=== PATIENT | male | born 1990 | race Caucasian/White ===

== ENCOUNTER 2017-10-08 14:31 | Observation (INO) ==
[2017-10-08] MEDS ORDERED: Sod Chloride 0.9% Inj 1,000 ML IV.SIG ONE ×2 (14:44)
--- NOTE | 2017-10-08 14:50 | ED ---
HPI General Chief Complaint: Recheck/Abnormal Lab/Rx Stated Complaint: nausea/vomitting/Evac Time Seen by Provider: 10/08/17 14:44 Source: patient and EMS Mode of arrival: EMS History of Present Illness HPI narrative: There is a 27-year-old man who presents to the nausea vomiting ongoing since this morning. States symptoms been persistent and severe. He is not had previous similar symptoms. One loose stool but no real diarrhea. Some slight abdominal discomfort earlier, now mostly resolved. Denies any alcohol or drug use. History of peptic ulcer disease when he was 19. On EMS arrival said he was pale cool diaphoretic, vomiting. Blood glucose was found to be elevated at 252. No fevers. No other symptoms. Related Data Home Medications Medication Instructions Recorded Confirmed No Known Home Medications 10/08/17 10/08/17 Allergies Allergy/AdvReac Type Severity Reaction Status Date / Time No Known Allergies Allergy Uncoded 03/14/12 13:34 Review of Systems Except as stated in HPI: all other systems reviewed are negative [facility] Family History Family History Other Diabetes mellitus Social History Social History Substance History: No History of Abuse Second Hand Smoke Exposure: No Smoking Status: Current some day smoker Tobacco Type: Cigars How Often Do You Have a Drink Containing Alcohol: Monthly or less Recent Travel in [facility] within the Last 8 Weeks: No Recent Out of Country Travel within the Last 8 Weeks: No Exam Narrative Exam Narrative: GENERAL: 27-year-old man, little bit unwell appearing, pale and clammy, tremulous and shaking. SKIN: Pale and cool. HEAD: Atraumatic. Normocephalic. EYES: Pupils equal and round. No scleral icterus. No injection or drainage. ENT: No nasal bleeding or discharge. Mucous membranes pink and moist. NECK: Trachea midline. No JVD. CARDIOVASCULAR: Regular rate and rhythm. No murmur appreciated. RESPIRATORY: No accessory muscle use. Clear to auscultation. Breath sounds equal bilaterally. Mild to moderate tachypnea. GASTROINTESTINAL: Abdomen is flat and soft. Minimal tenderness throughout. No rebound or guarding. MUSCULOSKELETAL: No obvious deformities. No edema. NEUROLOGICAL: Awake and alert. No obvious cranial nerve deficits. Motor grossly within normal limits. Normal speech. PSYCHIATRIC: Anxious and tremulous. Course Initial Documented Vital Signs Temperature 98.3 F 10/08/17 14:51 Pulse Rate 70 07/11/18 14:51 Respiratory Rate 16 10/08/17 14:51 Blood Pressure 110/52 L 10/08/17 14:51 Pulse Oximetry 97 10/08/17 14:51 Last Documented Vital Signs Temperature 98.3 F 10/08/17 14:51 Pulse Rate 77 10/08/17 14:57 Respiratory Rate 16 10/08/17 14:51 Blood Pressure 110/52 L 10/08/17 14:51 Pulse Oximetry 97 10/08/17 14:57 Medical Decision Making [facility] Narrative Medical decision making narrative: 27-year-old male presents with nausea vomiting, intractable, with somewhat ill appearance, pale and clammy. Mildly tachypnea, very anxious. Blood sugar is elevated. Seems to be a little bit old for onset type 1 diabetes but certainly possible. Will check labs. We will give IV fluids, Ativan, reassess. Benign abdominal exam at this time. Will reassess. Laboratory studies are occlusive. It shows a anion gap metabolic acidosis, but the pH is really not that abnormal, lactate elevated could suggest dehydration, beta hydroxybutyrate only minimally elevated. Blood sugar is elevated which could suggest diabetes, was likely stress effect from infection. Overall the picture still little bit unclear whether he has diabetes and this could be DKA or if it is dehydration stress from some other etiology. We will give IV fluids , will check repeat lactate, hemoglobin A1c, admission for observation and repeat assessment. Will give small dose of insulin. Lab Data Lab results reviewed: Yes I reviewed the patient's lab results. Result diagrams: 10/08/17 15:07 10/08/17 15:07 Lab Results 10/08/17 10/08/17 10/08/17 Range/Units 14:59 15:07 15:07 WBC (4.0-11.0) th/mm3 RBC (4.50-5.90) mil/mm3 Hgb (13.0-17.0) gm/dL Hct (39.0-51.0) % MCV (80.0-100.0) fL MCH (27.0-34.0) pg MCHC (32.0-36.0) % RDW (11.6-17.2) % Plt Count (150-450) th/mm3 MPV (7.0-11.0) fL Neut % (Auto) (16.0-70.0) % Lymph % (Auto) (9.0-44.0) % [place] % (Auto) (0.0-8.0) % Eos % (Auto) (0.0-4.0) % Baso % (Auto) (0.0-2.0) % Neut # (Auto) (1.8-7.7) th/mm3 Lymph # (Auto) (1.0-4.8) th/mm3 [place] # (Auto) (0.0-0.9) th/mm3 Eos # (Auto) (0.0-0.4) th/mm3 Baso # (Auto) (0.0-0.2) th/mm3 WBC Differential Differential Comment Puncture Site Nurse Patient Temperature 98.6 VBG pH 7.48 H (7.360-7.400) VBG pCO2 28 L (44-48) mmHG VBG pO2 27 L* (35-40) mmHG VBG HCO3 21 L (22-26) mmol/L VBG O2 Saturation 47 L (70-76) % VBG O2 Content 8.7 L (9.0-17.0) Vol % VBG Base Excess -2.3 L (-2-2) mmol/L VBG Carboxyhemoglobin 0.7 (0-4) % VBG Methemoglobin 0.7 (0-2) % Hemoglobin 13.2 (12.0-16.0) G/DL Inspired O2 21 % Critical Value Yes Sodium (136-145) meq/L Potassium (3.5-5.1) meq/L Chloride (98-107) meq/L Carbon Dioxide (21.0-32.0) meq/L Anion Gap (5-15) meq/L BUN (7-18) mg/dL Creatinine (0.60-1.30) mg/dL Estimated GFR (>89) mL/min Random Glucose (74-106) mg/dL Lactic Acid 3.7 H (0.4-2.0) mmol/L Calcium (8.5-10.1) mg/dL Total Bilirubin (0.2-1.0) mg/dL AST (15-37) U/L ALT (12-78) U/L Alkaline Phosphatase (45-117) U/L Total Protein (6.4-8.2) g/dL Albumin (3.4-5.0) g/dL Lipase (73-393) U/L Beta-Hydroxybutyric Acd 1.08 H (0.00-0.39) mmol/L 10/08/17 10/08/17 Range/Units 15:07 15:07 WBC 9.1 (4.0-11.0) th/mm3 RBC 4.78 (4.50-5.90) mil/mm3 Hgb 13.1 (13.0-17.0) gm/dL Hct 38.4 L (39.0-51.0) % MCV 80.3 (80.0-100.0) fL MCH 27.4 (27.0-34.0) pg MCHC 34.1 (32.0-36.0) % RDW 12.5 (11.6-17.2) % Plt Count 247 (150-450) th/mm3 MPV 8.2 (7.0-11.0) fL Neut % (Auto) 88.4 H (16.0-70.0) % Lymph % (Auto) 8.2 L (9.0-44.0) % [place] % (Auto) 3.0 (0.0-8.0) % Eos % (Auto) 0.1 (0.0-4.0) % Baso % (Auto) 0.3 (0.0-2.0) % Neut # (Auto) 8.1 H (1.8-7.7) th/mm3 Lymph # (Auto) 0.7 L (1.0-4.8) th/mm3 [place] # (Auto) 0.3 (0.0-0.9) th/mm3 Eos # (Auto) 0.0 (0.0-0.4) th/mm3 Baso # (Auto) 0.0 (0.0-0.2) th/mm3 WBC Differential . Differential Comment Auto diff final Puncture Site Patient Temperature VBG pH (7.360-7.400) VBG pCO2 (44-48) mmHG VBG pO2 (35-40) mmHG VBG HCO3 (22-26) mmol/L VBG O2 Saturation (70-76) % VBG O2 Content (9.0-17.0) Vol % VBG Base Excess (-2-2) mmol/L VBG Carboxyhemoglobin (0-4) % VBG Methemoglobin (0-2) % Hemoglobin (12.0-16.0) G/DL Inspired O2 % Critical Value Sodium 143 (136-145) meq/L Potassium 3.5 (3.5-5.1) meq/L Chloride 109 H (98-107) meq/L Carbon Dioxide 15.7 L (21.0-32.0) meq/L Anion Gap 18 H (5-15) meq/L BUN 16 (7-18) mg/dL Creatinine 1.31 H (0.60-1.30) mg/dL Estimated GFR 66 L (>89) mL/min Random Glucose 246 H (74-106) mg/dL Lactic Acid (0.4-2.0) mmol/L Calcium 8.4 L (8.5-10.1) mg/dL Total Bilirubin 0.9 (0.2-1.0) mg/dL AST 29 (15-37) U/L ALT 29 (12-78) U/L Alkaline Phosphatase 71 (45-117) U/L Total Protein 6.7 (6.4-8.2) g/dL Albumin 4.1 (3.4-5.0) g/dL Lipase 40 L (73-393) U/L Beta-Hydroxybutyric Acd (0.00-0.39) mmol/L Discharge Plan Discharge Disposition Patient Disposition: 30 Still Patient Physicians Team ED Provider: Mason Miles Primary Care Provider: Primary Care Gillian Browne Attending Provider: Hao Christian Status ED Status: Admitted Observation Patient
[2017-10-08 15:27] LABS: Baso % (Auto) 0.3 % (0.0-2.0); Eos % (Auto) 0.1 % (0.0-4.0); Hematocrit 38.4 % (39.0-51.0); Hemoglobin 13.1 gm/dL (13.0-17.0); Lymph # (Auto) 0.7 th/mm3 (1.0-4.8); Lymph % (Auto) 8.2 % (9.0-44.0); Mean Corpuscular HGB Conc 34.1 % (32.0-36.0); Mean Corpuscular Hemoglobin 27.4 pg (27.0-34.0); Mean Corpuscular Volume 80.3 fL (80.0-100.0); Mean Platelet Volume 8.2 fL (7.0-11.0); Mono # (Auto) 0.3 th/mm3 (0.0-0.9); Neut # (Auto) 8.1 th/mm3 (1.8-7.7); Neut % (Auto) 88.4 % (16.0-70.0); Platelet Count 247 th/mm3 (150-450); Red Blood Count 4.78 mil/mm3 (4.50-5.90); Red Cell Distribution Width 12.5 % (11.6-17.2); White Blood Count 9.1 th/mm3 (4.0-11.0)
[2017-10-08 15:39] LABS: VBG Base Excess -2.3 mmol/L (-2-2); VBG Blood Gas Oxygen Content 8.7 Vol % (9.0-17.0); VBG PCO2 28 mmHG (44-48); VBG PH 7.48 (7.360-7.400); VBG PO2 27 mmHG (35-40)
[2017-10-08 15:50] LABS: Alanine Aminotransferase 29 U/L (12-78); Albumin 4.1 g/dL (3.4-5.0); Anion Gap 18 meq/L (5-15); Aspartate Aminotransferase 29 U/L (15-37); Blood Urea Nitrogen 16 mg/dL (7-18); Calcium 8.4 mg/dL (8.5-10.1); Carbon Dioxide 15.7 meq/L (21.0-32.0); Chloride 109 meq/L (98-107); Glomerular Filtration Rate 66 mL/min (>89); Glucose,Random 246 mg/dL (74-106); Lipase 40 U/L (73-393); Potassium 3.5 meq/L (3.5-5.1); Sodium 143 meq/L (136-145)
[2017-10-08 15:53] LABS: Alkaline Phosphatase 71 U/L (45-117); Total Protein 6.7 g/dL (6.4-8.2)
[2017-10-08] MEDS ORDERED: Bisacodyl 10 MG Supp RECTAL PRN (17:02)
[2017-10-08] MEDS ORDERED: Acetaminophen 325 MG Tablet PO PRN (17:02)
[2017-10-08] MEDS ORDERED: Temazepam 15 MG Capsule PO PRN ×2 (17:02→17:34)
--- NOTE | 2017-10-08 17:02 | P.HPIM ---
History of Present Illness Primary Care Physician: No Primary Care Physician Chief Complaint: Intractable nausea and vomiting History of Present Illness: This is a 27-year-old male with no significant comorbidities other than history of peptic ulcer disease presenting to the hospital for nausea and vomiting. Patient has been in his usual state of health until yesterday, after dinner, he tried to go to sleep but cannot go to bed because of anxiety. This morning around 5 AM, he started having abdominal pain, nausea and started having dry heaves and occasional vomiting. He cannot keep anything down including fluids. There is no note of diarrhea, fever, chills, cough, your urinary symptoms. Patient denies any foot indiscretion. He only had chicken wings for dinner. Inpatient Certification: I certify that the inpatient services were ordered in accordance with Medicare regulations governing the order. This includes certification that hospital inpatient services are reasonable and necessary and in the case of services not specified as inpatient-only under 42 CFR 419.22(n), that they are appropriately provided as inpatient services in accordance to with the 2-midnight benchmark under 43 CFR 412.3(e) Review of Systems All other pertinent systems were reviewed and are negative. PMFSH - History History Provided By: Patient, Family Member - Medical History Medical History: Medical History (Last Reviewed 10/08/17 @ 16:59 by Hao Christian MD) Deafness in left ear Gastric ulcer Peptic ulcer - Family History Family History: Family History (Last Updated 10/08/17 @ 16:40 by Hao Christian MD) Other Diabetes mellitus - Tobacco History Second Hand Smoke Exposure: No Tobacco Use In Past 30 Days: No Smoking Status: Current some day smoker Tobacco Type: Cigars - Alcohol History How Often Do You Have a Drink Containing Alcohol: Monthly or less - Substance Use History Substance History: No History of Abuse - Travel History Recent Travel in the [place] Within the Last 8 Weeks: No Recent Travel Out of the Country Within the Last 8 Weeks: No - Immunization History Tetanus Immunization: Unsure Hx Influenza Vaccine This Season: No Medications and Allergies Active Medications: Active Medications Sodium Chloride (Ns Flush) 2 ml IV.FLUSH PRN PRN PRN Reason: FLUSH AFTER USING IV ACCESS Allergies Allergy/AdvReac Type Severity Reaction Status Date / Time No Known Allergies Allergy Uncoded 03/14/12 13:34 Home Medications Medication Instructions Recorded Confirmed Type No Known Home Medications 10/08/17 10/08/17 History Exam Vital signs: Vital Signs 10/08/17 14:51 10/08/17 14:57 Temperature 98.3 F Pulse Rate 70 77 Respiratory Rate 16 Blood Pressure 110/52 L Pulse Oximetry 97 97 Intake & Output 10/07/17 10/08/17 10/08/17 18:59 06:59 18:59 Weight 58.967 kg Narrative: Not in distress, well-nourished, appears weak. PERRL, pink conjunctiva without injection, anicteric Nose without bleeding, airway patent, oropharynx clear, poor dentition. Dry oral mucosa. Supple neck Normal rate and regular rhythm, no murmurs gallops or rubs appreciated. Clear to auscultation and symmetric bilaterally, normal respiratory effort. Normal bowel sounds, soft, non-tender, nondistended, no guarding. Extremities without clubbing, cyanosis, or edema. No rash of generalized distribution. Skin is warm and dry. AAO x3, no cranial nerve deficits, moves all 4 extremities, no focal neurologic deficits Results - Labs CBC & Chem 7: 10/08/17 15:07 10/08/17 15:07 Labs: Short CBC 10/08/17 Range/Units 15:07 WBC 9.1 (4.0-11.0) th/mm3 Hgb 13.1 (13.0-17.0) gm/dL Hct 38.4 L (39.0-51.0) % Plt Count 247 (150-450) th/mm3 BMP 10/08/17 15:07 Sodium 143 Potassium 3.5 Chloride 109 H Carbon Dioxide 15.7 L BUN 16 Creatinine 1.31 H Calcium 8.4 L Liver Function 10/08/17 Range/Units 15:07 Total Bilirubin 0.9 (0.2-1.0) mg/dL AST 29 (15-37) U/L ALT 29 (12-78) U/L Alkaline Phosphatase 71 (45-117) U/L Albumin 4.1 (3.4-5.0) g/dL Caprini VTE Risk Assessment Caprini VTE Risk Assessment: No/Low Risk (score <= 1) Caprini Risk Assessment Model: Point Value = 1 Point Value = 2 Point Value = 3 Point Value = 5 Age 41-60 Minor surgery BMI > 25 kg/m2 Swollen legs Varicose veins or History of unexplained or recurrent spontaneous Oral contraceptives or hormone replacement Sepsis (< 1 month) Serious lung disease, including pneumonia (< 1 month) Abnormal pulmonary function Acute myocardial infarction Congestive heart failure (< 1 month) History of inflammatory bowel disease Medical patient at bed rest Age 61-74 Arthroscopic surgery Major open surgery (> 45 min) Laparoscopic surgery (> 45 min) Malignancy Confined to bed (> 72 hours) Immobilizing plaster cast Central venous access Age >= 75 History of VTE Family history of VTE Factor V Leiden Prothrombin [id number] Lupus anticoagulant Anticardiolipin antibodies Elevated serum homocysteine Heparin-induced thrombocytopenia Other congenital or acquired thrombophilia Stroke (< 1 month) Elective arthroplasty Hip, pelvis, or leg fracture Acute spinal cord injury (< 1 month) Prophylaxis Regimen: Total Risk Factor Score Risk Level Prophylaxis Regimen 0-1 Low Early ambulation 2 Moderate Order ONE of the following: *Sequential Compression Device (SCD) *Heparin 5000 units SQ BID 3-4 Higher Order ONE of the following medications: *Heparin 5000 units SQ TID *Enoxaparin/Lovenox 40 mg SQ daily (WT < 150 kg, CrCl > 30 mL/min) *Enoxaparin/Lovenox 30 mg SQ daily (WT < 150 kg, CrCl > 10-29 mL/min) *Enoxaparin/Lovenox 30 mg SQ BID (WT < 150 kg, CrCl > 30 mL/min) AND/OR *Sequential Compression Device (SCD) 5 or more Highest Order ONE of the following medications: *Heparin 5000 units SQ TID (Preferred with Epidurals) *Enoxaparin/Lovenox 40 mg SQ daily (WT < 150 kg, CrCl > 30 mL/min) *Enoxaparin/Lovenox 30 mg SQ daily (WT < 150 kg, CrCl > 10-29 mL/min) *Enoxaparin/Lovenox 30 mg SQ BID (WT < 150 kg, CrCl > 30 mL/min) AND *Sequential Compression Device (SCD) Assessment and Plan - Plan This is a 27-year-old male with history of peptic ulcer presenting with intractable nausea and vomiting. Intractable nausea and vomiting-unknown etiology, could be from peptic ulcer disease versus acute gastroenteritis from food poisoning, rule out beginning DKA. Start Protonix, n.p.o. for now, status post 2 L of normal saline, continue IVF. Symptomatic management, antiemetics, morphine for pain. Rule out DKA, hot diabetes mellitus-check hemoglobin A1c, beta hydroxybutyrate acid is positive, lipase is normal, will give insulin based on sliding scale. IVF as above, check urinalysis. Metabolic acidosis-start LR. Recheck BMP and lactic acid. Severe dehydration-IVF as above GI prophylaxis: Protonix, patent previous history of peptic ulcer. DVT prophylaxis: Low risk
[2017-10-08] MEDS ORDERED: Naloxone Inj 0.4 MG/ML Vial IV.PUSH PRN (17:05)
[2017-10-08] MEDS ORDERED: Morphine Inj 4 MG/ML Vial IV.PUSH PRN ×2 (17:05→17:45)
[2017-10-08] MEDS ORDERED: Dextrose 50% in Water 50 ML Vial IV.PUSH PRN (17:06)
[2017-10-08 17:17] LABS: Hemoglobin A1c 5.1 % (4.3-6.0)
[2017-10-08 17:58] LABS: Bilirubin,Urine Negative (Negative); Clarity,Urine Clear (Clear); Color,Urine Yellow (Yellw/Straw); Glucose,Urine (UA) 150 mg/dL (Negative); Leukocyte Esterase,Urine Negative (Negative); Mucus,Urine Few /lpf (Occasional); Nitrite,Urine Negative (Negative); Specific Gravity,Urine 1.024 (1.002-1.035)
[2017-10-08] MEDS ORDERED: Pantoprazole Inj 40 MG Vial IV.PUSH SCH (18:00)
[2017-10-08] MEDS: Insulin NovoLIN Regular Correctional Sugar Inj SQ SCH (19:47)
[2017-10-09] MEDS: Insulin NovoLIN Regular Correctional Sugar Inj SQ SCH ×3 (01:27→13:59)
[2017-10-09 08:07] LABS: Alanine Aminotransferase 24 U/L (12-78); Albumin 3.5 g/dL (3.4-5.0); Alkaline Phosphatase 64 U/L (45-117); Anion Gap 9 meq/L (5-15); Aspartate Aminotransferase 27 U/L (15-37); Blood Urea Nitrogen 8 mg/dL (7-18); Calcium 8.1 mg/dL (8.5-10.1); Carbon Dioxide 22.8 meq/L (21.0-32.0); Chloride 112 meq/L (98-107); Glomerular Filtration Rate Greater Than 89 mL/min (>89); Glucose,Random 75 mg/dL (74-106); Potassium 3.3 meq/L (3.5-5.1); Sodium 144 meq/L (136-145)
--- NOTE | 2017-10-09 12:04 | P.PNIM ---
Subjective Interval history: Patient reports he is feeling much better today. No nausea or vomiting. Physical Exam Vital signs: Vital Signs 10/08/17 14:51 10/08/17 14:57 10/08/17 17:43 Temperature 98.3 F Pulse Rate 70 77 73 Respiratory Rate 16 18 Blood Pressure 110/52 L 99/54 L Pulse Oximetry 97 97 97 10/08/17 20:00 10/08/17 23:59 10/09/17 03:17 Temperature 98.5 F 98.7 F 98.5 F Pulse Rate 86 81 86 Respiratory Rate 16 16 16 Blood Pressure 98/51 L 111/56 L 107/58 L Pulse Oximetry 98 97 98 10/09/17 08:00 10/09/17 09:00 Temperature 98.0 F Pulse Rate 62 68 Respiratory Rate 18 Blood Pressure 108/62 Pulse Oximetry 98 Intake & Output 10/08/17 10/09/17 10/09/17 18:59 06:59 18:59 Intake Total 1999 / 1999 1000 / 1000 1000 / 1000 Balance 1999 / 1999 1000 / 1000 1000 / 1000 Weight 58.967 kg 58.967 kg Intake: IV 1999 / 1999 1000 / 1000 1000 / 1000 LR 1000 mL Inj 1,000 ML @ 125 1000 / 1000 1000 / 1000 mls/hr IV.CONT .Q8H VARSHA Rx#: [id number] NS Inj 1,000 ML @ Wide Open IV. 1999 / 1999 SIG BOLUS ONE Rx#:[id number] Other: Weight On Admission 58.967 kg Narrative: GENERAL: This is a well-nourished, well-developed patient, in no apparent distress. CARDIOVASCULAR: Normal rate and regular rhythm without murmurs, gallops, or rubs. RESPIRATORY: Good respiratory efforts. Breath sounds equal and clear to auscultation bilaterally. GASTROINTESTINAL: Abdomen soft, non-tender, non-distended. Normal active bowel sounds MUSCULOSKELETAL: Extremities without cyanosis, or edema. NEURO: Alert & Oriented x4 to person, place, time, situation. Moves all ext x4 PSYCH: Appropriate mood and affect. Results - Labs CBC & Chem 7: 10/08/17 15:07 10/09/17 06:15 Laboratory Results - last 24 hr 10/08/17 10/08/17 10/08/17 14:59 15:07 15:07 WBC RBC Hgb Hct MCV MCH MCHC RDW Plt Count MPV Neut % (Auto) Lymph % (Auto) [place] % (Auto) Eos % (Auto) Baso % (Auto) Neut # (Auto) Lymph # (Auto) [place] # (Auto) Eos # (Auto) Baso # (Auto) WBC Differential Differential Comment Puncture Site Nurse Patient Temperature 98.6 VBG pH 7.48 H VBG pCO2 28 L VBG pO2 27 L* VBG HCO3 21 L VBG O2 Saturation 47 L VBG O2 Content 8.7 L VBG Base Excess -2.3 L VBG Carboxyhemoglobin 0.7 VBG Methemoglobin 0.7 Hemoglobin 13.2 Inspired O2 21 Critical Value Yes Sodium Potassium Chloride Carbon Dioxide Anion Gap BUN Creatinine Estimated GFR POC Glucose Random Glucose Hemoglobin A1c Lactic Acid 3.7 H Calcium Total Bilirubin AST ALT Alkaline Phosphatase Total Protein Albumin Lipase Beta-Hydroxybutyric Acd 1.08 H Urine Color Urine Clarity Urine pH Ur Specific Fluker Urine Protein Urine Glucose (UA) Urine Ketones Urine Occult Blood Urine Nitrate Urine Bilirubin Urine Urobilinogen Ur Leukocyte Esterase Urine RBC Urine WBC Urine Mucus Micro UA Comment Urine Culture Comments 10/08/17 10/08/17 10/08/17 15:07 15:07 15:07 WBC 9.1 RBC 4.78 Hgb 13.1 Hct 38.4 L MCV 80.3 MCH 27.4 MCHC 34.1 RDW 12.5 Plt Count 247 MPV 8.2 Neut % (Auto) 88.4 H Lymph % (Auto) 8.2 L [place] % (Auto) 3.0 Eos % (Auto) 0.1 Baso % (Auto) 0.3 Neut # (Auto) 8.1 H Lymph # (Auto) 0.7 L [place] # (Auto) 0.3 Eos # (Auto) 0.0 Baso # (Auto) 0.0 WBC Differential . Differential Comment Auto diff final Puncture Site Patient Temperature VBG pH VBG pCO2 VBG pO2 VBG HCO3 VBG O2 Saturation VBG O2 Content VBG Base Excess VBG Carboxyhemoglobin VBG Methemoglobin Hemoglobin Inspired O2 Critical Value Sodium 143 Potassium 3.5 Chloride 109 H Carbon Dioxide 15.7 L Anion Gap 18 H BUN 16 Creatinine 1.31 H Estimated GFR 66 L POC Glucose Random Glucose 246 H Hemoglobin A1c 5.1 Lactic Acid Calcium 8.4 L Total Bilirubin 0.9 AST 29 ALT 29 Alkaline Phosphatase 71 Total Protein 6.7 Albumin 4.1 Lipase 40 L Beta-Hydroxybutyric Acd Urine Color Urine Clarity Urine pH Ur Specific Fl[place]er Urine Protein Urine Glucose (UA) Urine Ketones Urine Occult Blood Urine Nitrate Urine Bilirubin Urine Urobilinogen Ur Leukocyte Esterase Urine RBC Urine WBC Urine Mucus Micro UA Comment Urine Culture Comments 10/08/17 10/08/17 10/08/17 17:40 19:39 20:14 WBC RBC Hgb Hct MCV MCH MCHC RDW Plt Count MPV Neut % (Auto) Lymph % (Auto) [place] % (Auto) Eos % (Auto) Baso % (Auto) Neut # (Auto) Lymph # (Auto) [place] # (Auto) Eos # (Auto) Baso # (Auto) WBC Differential Differential Comment Puncture Site Patient Temperature VBG pH VBG pCO2 VBG pO2 VBG HCO3 VBG O2 Saturation VBG O2 Content VBG Base Excess VBG Carboxyhemoglobin VBG Methemoglobin Hemoglobin Inspired O2 Critical Value Sodium Potassium Chloride Carbon Dioxide Anion Gap BUN Creatinine Estimated GFR POC Glucose 70 78 Random Glucose Hemoglobin A1c Lactic Acid Calcium Total Bilirubin AST ALT Alkaline Phosphatase Total Protein Albumin Lipase Beta-Hydroxybutyric Acd Urine Color Yellow Urine Clarity Clear Urine pH 7.0 Ur Specific [place] 1.024 Urine Protein 30 H Urine Glucose (UA) 150 H Urine Ketones 80 or greater Urine Occult Blood Negative Urine Nitrate Negative Urine Bilirubin Negative Urine Urobilinogen Less than 2 Ur Leukocyte Esterase Negative Urine RBC Less than 1 Urine WBC 2 Urine Mucus Few H Micro UA Comment Culture not ind Urine Culture Comments Culture not ind 10/09/17 10/09/17 10/09/17 05:21 06:15 08:29 WBC RBC Hgb Hct MCV MCH MCHC RDW Plt Count MPV Neut % (Auto) Lymph % (Auto) [place] % (Auto) Eos % (Auto) Baso % (Auto) Neut # (Auto) Lymph # (Auto) [place] # (Auto) Eos # (Auto) Baso # (Auto) WBC Differential Differential Comment Puncture Site Patient Temperature VBG pH VBG pCO2 VBG pO2 VBG HCO3 VBG O2 Saturation VBG O2 Content VBG Base Excess VBG Carboxyhemoglobin VBG Methemoglobin Hemoglobin Inspired O2 Critical Value Sodium 144 Potassium 3.3 L Chloride 112 H Carbon Dioxide 22.8 Anion Gap 9 BUN 8 Creatinine 0.83 Estimated GFR Greater than 89 POC Glucose 82 81 Random Glucose 75 D Hemoglobin A1c Lactic Acid Calcium 8.1 L Total Bilirubin 0.8 AST 27 ALT 24 Alkaline Phosphatase 64 Total Protein 6.0 L D Albumin 3.5 D Lipase Beta-Hydroxybutyric Acd Urine Color Urine Clarity Urine pH Ur Specific [place] Urine Protein Urine Glucose (UA) Urine Ketones Urine Occult Blood Urine Nitrate Urine Bilirubin Urine Urobilinogen Ur Leukocyte Esterase Urine RBC Urine WBC Urine Mucus Micro UA Comment Urine Culture Comments Assessment and Plan - Assessment (1) Gastroenteritis Code(s): K52.9 - Noninfective gastroenteritis and colitis, unspecified Status : Acute - Plan 27-year-old male with history of peptic ulcer presenting with intractable nausea and vomiting. Intractable nausea and vomiting- -Suspect gastroenteritis possibly from food poisoning. Quickly improved. -Patient has a history of peptic ulcer disease. He has not been taking PPI. Resume PPI and I advised the patient to follow-up with GI outpatient. -Advance diet. Discharge home if he can tolerate the diet. Hyperglycemia on presentation. Blood glucose have been normal since then. Metabolic acidosis-resolved after IV fluid. Severe dehydration-resolved after IV fluid. Discharge Planning: Discharge home today if the patient can tolerate a diet. Discharge patient to home Condition on discharge: Improved Regular Diet as tolerated Ad Trupti activity Rx written: Omeprazole 40 mg p.o. daily Follow-up with primary care physician
== END 2017-10-09 16:47 | disposition home or self-care (01) ==
LOC: NEPC 14:31 → NEDA 14:31 → NEPHCDU 14:31
PROVIDERS: ADMIT Family Medicine; ATTEND Family Medicine